=== PATIENT | female | born 1970 | race Caucasian/White ===

== ENCOUNTER 2021-10-08 08:08 | Day surgery (SDC) | payer OTHER, BC ==
[2021-10-06 10:14] VITALS: BMI 24.5
[2021-10-08] MEDS ORDERED: LIDOCAINE HCL 2% (20ML MULTI-DOSE VIAL) ONE (10:20)
[2021-10-08] MEDS ORDERED: EPINEPHrine/PF 1 MG/1 ML (1:1,000) AMPULE ONE (10:20)
[2021-10-08] MEDS ORDERED: LIDOCAINE 1%/EPI 1:100000 (20 ML MULTI DOSE VIAL) ONE ×2 (10:20→11:08)
[2021-10-08] MEDS ORDERED: ROCURONIUM BROMIDE 50 MG/5 ML SYRINGE ONE (10:23)
[2021-10-08] MEDS ORDERED: PROPOFOL 20 ML ONE (10:23)
[2021-10-08] MEDS ORDERED: MIDAZOLAM HCL 2 MG/2 ML SINGLE DOSE VIAL ONE (10:23)
[2021-10-08] MEDS ORDERED: ePHEDrine SULFATE 50 MG/1 ML AMPULE ONE (11:20)
[2021-10-08] MEDS ORDERED: NEOSTIGMINE METHYLSULFATE 0.5 MG/1 ML - 10 ML MDV ONE (12:45)
[2021-10-08] MEDS ORDERED: HYDROmorphone HCL/PF 1 MG/ML VIAL IVPUSH PRN (13:20)
[2021-10-08] MEDS ORDERED: oxyCODONE HCL 5 MG TABLET PO PRN (13:20)
[2021-10-08] MEDS ORDERED: ONDANSETRON 4 MG/2 ML VIAL IVPUSH PRN (13:20)
[2021-10-08] MEDS ORDERED: ACETAMINOPHEN 1000 MG/100 ML BAG IVPB ONE (13:22)
[2021-10-08] MEDS ORDERED: LACTATED RINGERS SOLUTION 1,000 ML IV SCH (13:30)
[2021-10-08] MEDS ORDERED: ONDANSETRON *ODT* 4 MG TABLET ONE (15:15)
[2021-10-08 15:37] VITALS: BP 141/82; PULSE 88; TEMP 97.8
== END 2021-10-08 15:37 | disposition home or self-care (01) ==
LOC: FASU 08:08
PROVIDERS: ATTEND Plastic Surgery
PROC: 0HB5XZZ Excision of Chest Skin, External Approach (ICD-10-PCS; 2021-10-08)
PROC: 0JD63ZZ Extraction of Chest Subcutaneous Tissue and Fascia, Percutaneous Approach (ICD-10-PCS; 2021-10-08)
PROC: 0HX5XZZ Transfer Chest Skin, External Approach (ICD-10-PCS; principal; 2021-10-08 11:07)
DX: N65.0 Deformity of reconstructed breast (principal); L91.0 Hypertrophic scar
CPT/HCPCS: 84703; 88304-TC; 94760; J0131; Q0162